=== PATIENT | female | born 1995 | race Caucasian/White ===

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

== ENCOUNTER 2017-02-02 11:33 | Emergency (ER) | payer BC ==
--- NOTE | 2017-02-02 11:46 | UC ---
Skin Complaint HPI - HPI Summary HPI Summary: 21 YEAR OLD FEMALE PRESENTS WITH LEFT NOSE ABSCESS SECONDARY TO A NOSE RING. - History of Current Complaint Time Seen by Provider: 02/02/17 11:41 Stated Complaint: SKIN CONCERN Hx Obtained From: Patient Hx Last Menstrual Period: 11/20/16 Onset/Duration: Sudden Onset Skin Exposure Onset/Duration: Minutes Ago Onset Severity: Moderate Current Severity: Moderate Pain Scale Used: 0-10 Numeric - 5 Location: Nose Aggravating: Nothing Alleviating: Nothing Associated Signs & Symptoms: Positive: Negative - Allergy/Home Medications Allergies/Adverse Reactions: Allergies Allergy/AdvReac Type Severity Reaction Status Date / Time Hazelnuts Allergy Eyes Uncoded 11/20/16 18:18 Itchy/Swollen/Red/Watery strawberries Allergy Swelling Uncoded 11/20/16 18:18 Of Face,Lips,& Throat Review of Systems Constitutional: Negative Skin: Other - LEFT NOSE ABSCESS Eyes: Negative ENT: Negative Respiratory: Negative Cardiovascular: Negative Gastrointestinal: Negative Genitourinary: Negative Motor: Negative Neurovascular: Negative Musculoskeletal: Negative Neurological: Negative Psychological: Negative All Other Systems Reviewed And Are Negative: Yes PMH/Surg Hx/FS Hx/Imm Hx Previously Healthy: Yes - Surgical History Surgical History: Yes Surgery Procedure, Year, and Place: T&A 2010. tubes in ears x2 - Family History Known Family History: Negative: Cardiac Disease, Hypertension, Diabetes - Social History Alcohol Use: None Substance Use Type: None Smoking Status (MU): Never Smoked Tobacco - Immunization History Most Recent Influenza Vaccination: 05/2016 Most Recent Pneumonia Vaccination: n/a Vaccination Up to Date: Yes Physical Exam Triage Information Reviewed: Yes Eye Exam: Normal ENT Exam: Normal Dental Exam: Normal Neck exam: Normal Neck: Positive: 1 Respiratory Exam: Normal Cardiovascular Exam: Normal Abdominal Exam: Normal Musculoskeletal Exam: Normal Neurological Exam: Normal Psychological Exam: Normal Skin Exam: Normal Course/Dx - Diagnoses Provider Diagnoses: LEFT NASAL ABSCESS Discharge - Discharge Plan Condition: Stable Disposition: HOME Prescriptions: Cephalexin CAP* [Keflex 500 CAP*] 500 mg PO TID #21 cap Mupirocin 2% OINT* [Bactroban 2 % Oint*] 1 applic TOPICAL BID #1 tube Patient Education Materials: Abscess (ED) Referrals: No Primary Care Phys,NOPCP [Medical Doctor] -
[2017-02-02 11:50] VITALS: BP 126/78
== END 2017-02-02 12:01 | disposition home or self-care (01) ==
LOC: UCCORT 11:33
DX: J34.0 Abscess, furuncle and carbuncle of nose (principal); Z91.018 Allergy to other foods
CPT/HCPCS: 87070; 87205; 99212; G0463

== ENCOUNTER 2017-06-09 08:49 | Emergency (ER) | payer BC ==
[2017-06-09 09:20] VITALS: BP 122/73
--- NOTE | 2017-06-09 09:37 | UC ---
Ear Complaint HPI - HPI Summary HPI Summary: 21 y/o female presents to the urgent care c/o RT ear pain and mild sore throat for the past 2 days. Pt reports decrease hearing. Pain is 3/10. She took Ibuprofen 400mg PO this morning to alleviate symptoms. Pt denies fever, cough, nasal congestion, URI symptoms, chest pain, dizziness, abdominal pain, N/V/D - History of Current Complaint Chief Complaint: UCEar Stated Complaint: RIGHT EAR Time Seen by Provider: 06/09/17 09:19 Hx Obtained From: Patient Hx Last Menstrual Period: 05/19/17 Onset/Duration: Gradual Onset, Lasting Days - 2 days, Still Present, Worse Since - this morning Severity Initially: Mild Severity Currently: Mild Pain Intensity: 3 Pain Scale Used: 0-10 Numeric Aggravating Factors: Nothing Alleviating Factors: Nothing Associated Signs/Symptoms: Positive: Hearing Loss - Allergies/Home Medications Allergies/Adverse Reactions: Allergies Allergy/AdvReac Type Severity Reaction Status Date / Time Hazelnuts Allergy Eyes Uncoded 06/09/17 09:20 Itchy/Swollen/Red/Watery strawberries Allergy Swelling Uncoded 06/09/17 09:20 Of Face,Lips,& Throat PMH/Surg Hx/FS Hx/Imm Hx Previously Healthy: Yes - Pt denies PMHX - Surgical History Surgical History: Yes Surgery Procedure, Year, and Place: T&A 2010. tubes in ears x2 - Family History Known Family History: Positive: None - Pt denies FMHX Negative: Cardiac Disease, Hypertension, Diabetes - Social History Occupation: Student Lives: With Family Alcohol Use: None Substance Use Type: None Smoking Status (MU): Never Smoked Tobacco - Immunization History Most Recent Influenza Vaccination: 05/2016 Most Recent Pneumonia Vaccination: n/a Vaccination Up to Date: Yes Review of Systems Constitutional: Negative Skin: Negative Eyes: Negative ENT: Sore Throat - mild, Ear Ache - RT ear Respiratory: Negative Cardiovascular: Negative Gastrointestinal: Negative Genitourinary: Negative Motor: Negative Neurovascular: Negative Musculoskeletal: Negative Neurological: Negative Psychological: Negative Is Patient Immunocompromised?: No All Other Systems Reviewed And Are Negative: Yes Physical Exam Triage Information Reviewed: Yes Vital Signs: Initial Vital Signs Temp 97.9 F 06/09/17 09:15 Pulse 77 06/09/17 09:15 Resp 16 06/09/17 09:15 BP 122/73 06/09/17 09:15 Pulse Ox 100 06/09/17 09:15 - Additional Comments Vital signs: reviewed General: well developed, well nourished female adolescent, sitting in the examining table w/o any apparent distress. Skin: [place], warm and dry, no evidence of atopic dermatitis, psoriasis, seborrhea. HEENT: -Head: atraumatic, non tender; no scalp dermatitis. -Eyes: sclera and conjunctiva clear, PERRLA, EOMI -Ears: no pre- or postauricular lymphadenopathy or erythema; RT external ear canal clear Rt TM with injected with erythema and green purulent discharge, LF external ear canal clear and LF TM WNL. -Nose/Face: erythematous and edematous nasal mucosa with clear rhinorrhea, no frontal or maxillary sinus tender to palpation. -Mouth/Throat: Mucous membrane moist, posterior pharynx clear, mild erythema or exudates. Neck: supple, FROM, nontender, no lymphadenopathy, no meningismus. Chest: Clear to auscultation, normal breath sounds Abd: soft, Bowel sounds active, Nontender. Back: no spinal or CVAT Neuro: A&O x4, GCS 15, no focal neuro deficits, normal behavior for age. Ear Complaint Course/Dx - Course Course Of Treatment: 21 y/o female presents to the urgent care c/o RT ear pain and mild sore throat for the past 2 days. Pt reports decrease hearing. Pain is 3 /10. She took Ibuprofen 400mg PO this morning to alleviate symptoms. Pt denies fever, cough, nasal congestion, URI symptoms, chest pain, dizziness, abdominal pain, N/V/D. Hx obtained. Pt with Rt otitis media on examination. Pt Rx Amoxicillin PO and Ibuprofen PO. Advised if symptoms do not improve or worsen to return to the urgent care or f/u with PCP for further management. Pt understood and agreed with D/C instructions. - Differential Dx/Diagnosis Differential Diagnosis/HQI/PQRI: Otitis Externa, Otitis Media, Perforated TM Provider Diagnoses: 1- Rt acute bacterial otits media Discharge - Discharge Plan Condition: Stable Disposition: HOME Prescriptions: Amoxicillin PO (*) [Amoxicillin 875 MG (*)] 875 mg PO BID #20 tab Ibuprofen TAB* [Motrin TAB* 600 MG] 600 mg PO Q6H PRN #20 tab PRN Reason: Pain Patient Education Materials: Otitis Media (ED) Referrals: DEMETRI Guzman [Primary Care Provider] - 2 Days Additional Instructions: 1- Please take the full course of the antibiotic to avoid resistance. 2-Please take ibuprofen PO q6-8hrs prn as instructed after meals to alleviate pain and swelling. Increase fluid intake, eat well, rest 3-If symptoms do not improve or worsen please return to the urgent care or f/u with your PCP in 2-3 days for further evaluation and treatment.
== END 2017-06-09 10:00 | disposition home or self-care (01) ==
LOC: UCCORT 08:49
DX: H66.91 Otitis media, unspecified, right ear (principal)
CPT/HCPCS: 99212; G0463

== ENCOUNTER 2017-06-12 13:41 | Emergency (ER) | payer BC ==
[2017-06-12 15:19] VITALS: BP 128/77
--- NOTE | 2017-06-12 15:45 | UC ---
Ear Complaint HPI - HPI Summary HPI Summary: 21 y/o female adolescent presents to the urgent care c/o worsening RT ear pain for the past 5 days. Pt states she has here at the clinic 3 days ago and Rx amoxicillin PO for RT ear infection. But her symptoms and not getting better. she now has decrease hearing. Pt denies fever, dizziness, NORRIS, N/V/D - History of Current Complaint Chief Complaint: UCEar Stated Complaint: EAR PAIN Time Seen by Provider: 06/12/17 15:43 Hx Obtained From: Patient Hx Last Menstrual Period: 05/21/17 ?: No Onset/Duration: Gradual Onset, Lasting Days - 5 days, Still Present Severity Initially: Mild Severity Currently: Moderate Pain Intensity: 5 Pain Scale Used: 0-10 Numeric Aggravating Factors: Other - touch Alleviating Factors: OTC Meds Associated Signs/Symptoms: Positive: Hearing Loss - Allergies/Home Medications Allergies/Adverse Reactions: Allergies Allergy/AdvReac Type Severity Reaction Status Date / Time Hazelnuts Allergy Eyes Uncoded 06/12/17 15:19 Itchy/Swollen/Red/Watery strawberries Allergy Swelling Uncoded 06/12/17 15:19 Of Face,Lips,& Throat PMH/Surg Hx/FS Hx/Imm Hx Previously Healthy: Yes - Pt denies PMHX - Surgical History Surgical History: Yes Surgery Procedure, Year, and Place: T&A 2010. tubes in ears x2 - Family History Known Family History: Positive: None - Pt denies FMHX Negative: Cardiac Disease, Hypertension, Diabetes - Social History Occupation: Student Lives: With Family Alcohol Use: None Substance Use Type: None Smoking Status (MU): Never Smoked Tobacco - Immunization History Most Recent Influenza Vaccination: 05/2016 Most Recent Pneumonia Vaccination: n/a Vaccination Up to Date: Yes Review of Systems Constitutional: Negative Skin: Negative Eyes: Negative ENT: Ear Ache - RT ear pain Respiratory: Negative Cardiovascular: Negative Gastrointestinal: Negative Genitourinary: Negative Motor: Negative Neurovascular: Negative Musculoskeletal: Negative Neurological: Negative Psychological: Negative Is Patient Immunocompromised?: No All Other Systems Reviewed And Are Negative: Yes Physical Exam Triage Information Reviewed: Yes Vital Signs: Initial Vital Signs Temp 98 F 06/12/17 15:15 Pulse 79 06/12/17 15:15 Resp 16 06/12/17 15:15 BP 128/77 01/11/18 15:15 Pulse Ox 100 06/12/17 15:15 - Additional Comments Vital signs: reviewed General: awake and alert, not toxic appearing. Skin: [place], warm and dry, no evidence of atopic dermatitis, psoriasis, seborrhea. HEENT: -Head: atraumatic, non tender; no scalp dermatitis. -Eyes: sclera and conjunctiva clear, PERRLA, EOMI -Ears: RT external ear canal with erythema and bright green purulent discharge , pinna tenderness on palpation, unable to visualize TM, LF external ear canal clear and LF TM WNL. No perforation. -Nose/Face: erythematous and edematous nasal mucosa with clear rhinorrhea, no frontal or maxillary sinus tender to palpation. -Mouth/Throat: Mucous membrane moist, posterior pharynx clear, no erythema or exudates. Neck: supple, FROM, nontender, no lymphadenopathy, no meningismus. Chest: Clear to auscultation, normal breath sounds Abd: soft, Bowel sounds active, Nontender. Back: no spinal or CVAT Neuro: A&O x4, GCS 15, no focal neuro deficits, normal behavior for age. Ear Complaint Course/Dx - Course Course Of Treatment: 21 y/o female adolescent presents to the urgent care c/o worsening RT ear pain for the past 5 days. Pt states she has here at the clinic 3 days ago and Rx amoxicillin PO for RT ear infection. But her symptoms and not getting better. she now has decrease hearing. Pt denies fever, dizziness, NORRIS, N/ V/D. Hx obtained. Pt with Rt exteranl ear canal with a bright green ear discharge on examiantion. Smple taking with a swab and sent to lab to r/o pseudomonas. Pt Rx Cortisporin Otic drops and advised to continue taking Ibuprofen PO and Amoxicillin PO. Pt will be notified if any abnomality. Pt understood and agreed with plan of care. - Differential Dx/Diagnosis Differential Diagnosis/HQI/PQRI: Cerumen Impaction, Otitis Externa, Otitis Media , Perforated TM Provider Diagnoses: 1- Rt acute otitis externa Discharge - Discharge Plan Condition: Stable Disposition: HOME Prescriptions: Neomyc/Polym/HC 1% OTIC SUSP* [Cortisporin Otic Susp 1%*] 4 drop RIGHT EAR TID # 1 btl Patient Education Materials: Otitis Externa (ED) Referrals: DEMETRI Guzman [Primary Care Provider] - 2 Days Gage Swift MD [Medical Doctor] - 2 Days Additional Instructions: 1-Please apply otic antibiotic on your Rt ear as directed. 2-Take ibuprofen PO q6-8hrs after meals for pain. 3-If symptoms do not improve or worsen please f/u with ENT DR Swift for further evaluation and treatment. 4- Ear culture was sent to lab if any abnormality you will be notified
== END 2017-06-12 16:18 | disposition home or self-care (01) ==
LOC: UCCORT 13:41
DX: H60.501 Unspecified acute noninfective otitis externa, right ear (principal); H91.91 Unspecified hearing loss, right ear
CPT/HCPCS: 87070; 87077; 87186; 87205; 99212; G0463

== ENCOUNTER 2017-09-03 17:39 | Emergency (ER) | payer BC ==
[2017-09-03 18:59] VITALS: BP 129/80
--- NOTE | 2017-09-03 20:29 | UC ---
Ear Complaint HPI - HPI Summary HPI Summary: 21 yo WF h/o recurrent ear infections - (s/p myringotomy tubes in right ear) c/ o left cervical neck pain radiating to right ear, denies, f/c/ URI sx - History of Current Complaint Chief Complaint: UCEar Stated Complaint: RIGHT EAR COMPLAINT Time Seen by Provider: 09/03/17 19:32 Hx Obtained From: Patient Hx Last Menstrual Period: 05/21/17 ?: Yes Onset/Duration: Lasting Days Severity Initially: Moderate Severity Currently: Moderate Pain Intensity: 3 Pain Scale Used: 0-10 Numeric - Allergies/Home Medications Allergies/Adverse Reactions: Allergies Allergy/AdvReac Type Severity Reaction Status Date / Time Hazelnuts Allergy Eyes Uncoded 09/03/17 18:56 Itchy/Swollen/Red/Watery strawberries Allergy Swelling Uncoded 09/03/17 18:56 Of Face,Lips,& Throat PMH/Surg Hx/FS Hx/Imm Hx - Additional Past Medical History Additional PMH: right OMs - Surgical History Surgical History: Yes Surgery Procedure, Year, and Place: T&A 2010. tubes in ears x2 - Family History Known Family History: Positive: None - Pt denies FMHX Negative: Cardiac Disease, Hypertension, Diabetes - Social History Alcohol Use: None Substance Use Type: None Smoking Status (MU): Never Smoked Tobacco - Immunization History Most Recent Influenza Vaccination: 05/2016 Most Recent Pneumonia Vaccination: n/a Vaccination Up to Date: Yes Review of Systems Constitutional: Negative Skin: Negative Eyes: Negative ENT: Ear Ache Respiratory: Negative Cardiovascular: Negative Gastrointestinal: Negative Genitourinary: Negative Motor: Negative Neurovascular: Negative Musculoskeletal: Negative Neurological: Negative Psychological: Negative All Other Systems Reviewed And Are Negative: Yes Physical Exam Triage Information Reviewed: Yes Appearance: Well-Appearing Vital Signs: Initial Vital Signs Temp 36.9 C 09/03/17 18:56 Pulse 82 09/03/17 18:56 Resp 16 09/03/17 18:56 BP 129/80 09/03/17 18:56 Pulse Ox 100 09/03/17 18:56 Vital Signs Reviewed: Yes Eye Exam: Normal ENT Exam: Normal ENT: Positive: TM dull - yellowish and opague tint on right TM, no effusion, NO tragal or pinna tenderness Dental Exam: Normal Neck exam: Normal Neck: Positive: 1 Respiratory Exam: Normal Cardiovascular Exam: Normal Abdominal Exam: Normal Musculoskeletal Exam: Normal Neurological Exam: Normal Psychological Exam: Normal Skin Exam: Normal Ear Complaint Course/Dx - Differential Dx/Diagnosis Provider Diagnoses: Right OM Discharge - Sign-Out/Discharge Documenting (check all that apply): Discharge - Discharge Plan Condition: Stable Disposition: HOME Prescriptions: ceFUROXime TAB(*) [Ceftin TAB 250 MG(*)] 500 mg PO BID 10 Days #20 tab Patient Education Materials: Ear Infection (ED) Referrals: DEMETRI Guzman [Primary Care Provider] - - Billing Disposition and Condition Condition: STABLE Disposition: HOME
== END 2017-09-03 20:06 | disposition home or self-care (01) ==
LOC: UCCORT 17:39
DX: H66.91 Otitis media, unspecified, right ear (principal); Z96.29 Presence of other otological and audiological implants
CPT/HCPCS: 99212; G0463

== ENCOUNTER 2019-04-15 13:45 | Emergency (ER) | payer BC ==
[2019-04-15 14:58] VITALS: BP 135/80
--- NOTE | 2019-04-15 15:24 | UC ---
UC General HPI - HPI Summary HPI Summary: 23 yo with history of enlarged tender nodes associated with malaise for several weeks. She has not had a fever, but feels very run down, and today she missed taking a test due to feeling so unwell. She has had off and on headaches, a sore throat which resolved, occasional nausea, but no fever or chills. No past hx of mono. - History of Current Complaint Chief Complaint: UCRespiratory Stated Complaint: SWOLLEN LYMPH NODES,ACHY,LOW ENERGY Time Seen by Provider: 04/15/19 15:11 Hx Obtained From: Patient Hx Last Menstrual Period: 04/14/19 Onset/Duration: Gradual Onset Onset Severity: Moderate Current Severity: Moderate Pain Intensity: 3 Associated Signs & Symptoms: Positive: Headache, Nausea - Allergy/Home Medications Allergies/Adverse Reactions: Allergies Allergy/AdvReac Type Severity Reaction Status Date / Time Hazelnuts Allergy Eyes Uncoded 04/15/19 14:55 Itchy/Swollen/Red/Watery strawberries Allergy Swelling Uncoded 04/15/19 14:55 Of Face,Lips,& Throat PMH/Surg Hx/FS Hx/Imm Hx Previously Healthy: Yes - Surgical History Surgical History: Yes Surgery Procedure, Year, and Place: T&A 2010. tubes in ears x3 - Family History Known Family History: Positive: Other - MGM has some form of thyroid dysfunction. Negative: Cardiac Disease, Hypertension, Diabetes - Social History Occupation: Student - at [employer]. Lives: With Family Alcohol Use: Occasionally Substance Use Type: None Smoking Status (MU): Never Smoked Tobacco - Immunization History Most Recent Influenza Vaccination: 05/2016 Most Recent Tetanus Shot: UTD Most Recent Pneumonia Vaccination: n/a Vaccination Up to Date: Yes Review of Systems All Other Systems Reviewed And Are Negative: Yes Constitutional: Positive: Fatigue Skin: Positive: Negative Eyes: Positive: Negative ENT: Positive: Sore Throat - now resolved. Respiratory: Positive: Negative Cardiovascular: Positive: Negative Gastrointestinal: Positive: Nausea. Negative: Abdominal Pain, Vomiting, Diarrhea Genitourinary: Positive: Negative Motor: Positive: Negative Neurovascular: Positive: Negative Musculoskeletal: Positive: Negative Neurological: Positive: Headache - off and on, has been using advil for relief Psychological: Positive: Negative Is Patient Immunocompromised?: No Physical Exam Triage Information Reviewed: Yes Appearance: No Pain Distress, Ill-Appearing - looks fatigued. Vital Signs: Initial Vital Signs Temp 98.2 F 04/15/19 14:55 Pulse 89 04/15/19 14:55 Resp 16 04/15/19 14:55 BP 135/80 04/15/19 14:55 Pulse Ox 100 04/15/19 14:55 Eyes: Positive: Conjunctiva Clear ENT Exam: Other - diffuse enlargement of thyroid gland, non-tender ENT: Positive: Pharynx normal - past tonsillectomy Neck: Positive: Supple, Enlarged Nodes @ - mobile small nodes about 1 cm--one low in the right posterior cervical chain, one in the mid left posterior cervical chain, one submandibular. No occipital nodes. Respiratory Exam: Other - no axillary nodes Respiratory: Positive: Lungs clear, Normal breath sounds, No respiratory distress Cardiovascular: Positive: RRR, No Murmur Abdominal Exam: Other - no inguinal nodes. Abdomen Description: Positive: Nontender, No Organomegaly, Soft Musculoskeletal Exam: Normal Neurological Exam: Normal Psychological Exam: Normal Skin Exam: Normal Course/Dx - Course Course Of Treatment: Advised labs to check for mono, which is a possible diagnosis, and also to screen for low thyroid function. - Differential Dx - Multi-Symptom Differential Diagnoses: Other - mono, hypothyroidism, viral illness. - Diagnoses Provider Diagnosis: Lymphadenopathy of head and neck, Thyromegaly Discharge ED - Sign-Out/Discharge Documenting (check all that apply): Patient Departure All imaging exams completed and their final reports reviewed: No Studies - Discharge Plan Condition: Stable Disposition: HOME Patient Education Materials: Lymphadenopathy (ED) Forms: *School Release Referrals: Daljit Mott PA [Primary Care Provider] - Additional Instructions: Labs have been done to check for mono as well as low thyroid function. Rest at home, ensure a high intake of fluids. - Billing Disposition and Condition Condition: STABLE Disposition: Home
[2019-04-16 11:44] LABS: ABS Eosinophils 0.2 10^3/ul (0-0.6); ABS Lymphocytes 1.8 10^3/ul (1.0-4.8); ABS Monocytes 0.3 10^3/ul (0-0.8); ABS Neutrophils 4.1 10^3/ul (1.5-7.7); Eosinophil % 2.5 %; Hematocrit 39 % (35-47); Hemoglobin 13.1 g/dL (12.0-16.0); Lymphocyte % 28.5 %; Mean Corpuscular HGB Conc 33 g/dL (31-36); Mean Corpuscular Hemoglobin 29 pg (27-31); Mean Corpuscular Volume 87 fL (80-97); Mean Platelet Volume 10.5 fL (7.4-10.4); Nucleated Red Blood Cells % 0.2; Platelet Count 189 10^3/uL (150-450); Red Blood Count 4.53 10^6 /uL (3.70-4.87); Red Cell Distribution Width 14 % (10-15); White Blood Count 6.4 10^3/uL (3.5-10.8)
--- NOTE | 2019-04-17 07:17 | UC ---
- Progress Note Progress Note: CBC, TSH WNL. MONOSPOT NEG. NO CHANGE IN MGMT. F/U PCP. Course/Dx - Diagnoses Provider Diagnoses: Lymphadenopathy of head and neck, Thyromegaly Discharge ED - Sign-Out/Discharge Documenting (check all that apply): Post-Discharge Follow Up All imaging exams completed and their final reports reviewed: No Studies - Discharge Plan Condition: Stable Disposition: HOME Patient Education Materials: Lymphadenopathy (ED) Forms: *School Release Referrals: Daljit Mott PA [Primary Care Provider] - Additional Instructions: Labs have been done to check for mono as well as low thyroid function. Rest at home, ensure a high intake of fluids. - Billing Disposition and Condition Condition: STABLE Disposition: Home
[2019-04-17 11:54] LABS: EBV Capsid Ag IgG Ab Negative (Negative); EBV Capsid Ag IgM Ab Negative (Negative); Epstein-Barr Nuclear Antigen Negative (Negative)
== END 2019-04-15 15:58 | disposition home or self-care (01) ==
LOC: UCCORT 13:45
DX: R59.1 Generalized enlarged lymph nodes (principal); E01.0 Iodine-deficiency related diffuse (endemic) goiter; Z91.018 Allergy to other foods
CPT/HCPCS: 36415; 84443; 85025; 86308; 86664; 86665; 99211; G0463